=== PATIENT | female | born 1975 | race Caucasian/White ===

== ENCOUNTER → 2019-02-05 | Outpatient (CLI) | payer OTHER ==
[~2019-02-05] MED LIST: ALLEGRA30 MG PO; CELEXA 20 MG TA20 M1 PO; CLA1000 MG PO; FLORINEF ACETA0.1 MG PO; MULTIVITAMINS; NUVARING VAGIN1 EACH VG; VITAMIN C120 GM
== END ==
LOC: ULTRA 07:57
DX: E01.0 Iodine-deficiency related diffuse (endemic) goiter (principal); E04.1 Nontoxic single thyroid nodule